=== PATIENT | male | born 1955 ===

== ENCOUNTER 2019-11-26 06:11 | Inpatient (IN) ==
[2019-11-26 09:26] LABS: Amorphous Crystals,Urine Few /HPF (Few); Apearance,Urine Slightly Hazy (Clear); Bilirubin,Urine Negative (Negative); Blood, Urine Small mg/dL (Negative); Glucose,Urine (UA) >=500 mg/dL (Negative); Ketones,Urine 80 mg/dL (Negative); Nitrite,Urine Negative (Negative); Protein,Urine Negative; Urine Color Yellow (Yellow); Urine Specific Gravity 1.023 (1.001-1.035); Urine Urobilinogen < 2.0 EU/DL (0.2-1.0)
[2019-11-26] MEDS ORDERED: LACTATED RINGERS 2,000 ML IV ONE (09:50)
[2019-11-26] MEDS ORDERED: LACTULOSE 20 GM/30 ML UDCUP PO PRN (09:54)
[2019-11-26] MEDS ORDERED: DEXTROSE 50% 25 GM/50 ML VIAL IV PRN (09:54)
[2019-11-26] MEDS ORDERED: DEXTROSE 10% 250 ML BAG IV PRN (09:54)
[2019-11-26] MEDS ORDERED: ACETAMINOPHEN 325 MG TABLET PO PRN (09:54)
[2019-11-26] MEDS ORDERED: ONDANSETRON 4 MG/2 ML VIAL IV PRN (09:54)
[2019-11-26] MEDS ORDERED: GLUCAGON 1 MG VIAL IM PRN ×2 (09:54)
[2019-11-26] MEDS ORDERED: ALUMINUM/MAGNES/SIMETH MAX STR 30 ML UDCUP PO PRN (09:54)
[2019-11-26] MEDS: ENOXAPARIN 30 MG/0.3 ML SYRINGE SUBCUT SCH (10:56)
[2019-11-26] MEDS: PANTOPRAZOLE 40 MG TABLET PO SCH (10:56)
[2019-11-26] MEDS: INSULIN LISPRO 100 UNIT/ML SUBCUT SCH ×3 (12:07→20:22)
[2019-11-26] MEDS: INSULIN NPH 100 UNIT/ML SUBCUT SCH ×2 (12:07→17:37)
[2019-11-26] MEDS: LACTATED RINGERS 1,000 ML IV SCH ×2 (12:20→20:24)
[2019-11-26] MEDS: METOCLOPRAMIDE 10 MG/2 ML VIAL IV SCH (18:16)
[2019-11-26] MEDS ORDERED: amLODIPine 10 MG TABLET PO SCH (18:35)
[2019-11-26] MEDS: amLODIPine 10 MG TABLET PO SCH (21:08)
[2019-11-27] MEDS: METOCLOPRAMIDE 10 MG/2 ML VIAL IV SCH ×2 (00:20→06:18)
[2019-11-27] MEDS: INSULIN LISPRO 100 UNIT/ML SUBCUT SCH ×6 (00:22→20:28)
[2019-11-27] MEDS: LACTATED RINGERS 1,000 ML IV SCH ×4 (04:46→21:00)
[2019-11-27 05:21] LABS: Basophils % 0.3 % (0.0-0.8); Eosinophils # 0.1 10*3/uL (0.0-0.87); Hematocrit 30.3 VOL% (42.0-52.0); Hemoglobin 10.1 GM/DL (14.0-18.0); Immature Granulocytes % 0.6 %; Immature Granulocytes Absolute 0.04 #; Lymphocytes # 2.4 10*3/uL (1.4-4.0); Lymphocytes % 35.1 % (21.2-54.2); Mean Corpuscular HGB Conc 33.3 GM/DL (32-36); Mean Corpuscular Volume 92.9 FL (87-102); Mean Platelet Volume 13.2 FL (9.6-12.0); Monocytes % 12.4 % (1.7-12.7); Neutrophils % 50.6 % (38.7-73.9); Platelet Count 127 T/CUMM (130-400); Red Blood Count 3.26 MC/CUMM (3.8-5.5); Red Cell Distribution Width 12.3 % (9.3-17.3); White Blood Count 6.9 T/CUMM (4-12)
[2019-11-27 05:37] LABS: Calcium 8.1 MG/DL (8.5-10.1); Osmolality,Calculated 275.8 MOS/KG (273-304)
[2019-11-27 06:01] LABS: Risk Ratio 6.08; Thyroid Stimulating Hormone 0.747 uIU/ml (0.358-3.74); VLDL CHOLESTEROL 65.6 MG/DL
[2019-11-27] MEDS: ENOXAPARIN 30 MG/0.3 ML SYRINGE SUBCUT SCH (09:02)
[2019-11-27] MEDS: PANTOPRAZOLE 40 MG TABLET PO SCH (09:02)
[2019-11-27] MEDS: INSULIN NPH 100 UNIT/ML SUBCUT SCH ×2 (09:02→16:41)
[2019-11-27] MEDS: amLODIPine 10 MG TABLET PO SCH (09:02)
[2019-11-28] MEDS: INSULIN LISPRO 100 UNIT/ML SUBCUT SCH ×7 (00:23→23:57)
[2019-11-28 06:26] LABS: Calcium 7.9 MG/DL (8.5-10.1)
[2019-11-28] MEDS ORDERED: POTASSIUM CHLORIDE INJ 40 MEQ in LACTATED RINGERS 1,000 ML IV SCH (09:00)
[2019-11-28] MEDS: PANTOPRAZOLE 40 MG TABLET PO SCH (09:19)
[2019-11-28] MEDS: amLODIPine 10 MG TABLET PO SCH (09:19)
[2019-11-28] MEDS: INSULIN NPH 100 UNIT/ML SUBCUT SCH ×2 (09:19→17:27)
[2019-11-28] MEDS: ENOXAPARIN 30 MG/0.3 ML SYRINGE SUBCUT SCH (09:23)
[2019-11-28] MEDS ORDERED: MAGNESIUM SULF RIDER 2 GM in PREMIX 1 EACH IV PRN (14:55)
[2019-11-28] MEDS ORDERED: MAGNESIUM SULF RIDER 4 GM in PREMIX 1 EACH IV PRN (14:55)
[2019-11-28] MEDS ORDERED: POTASSIUM PHOSPHATE 30 MMOL in SODIUM CHLORIDE 0.9% 250 ML IV ONE (16:00)
[2019-11-28] MEDS ORDERED: INSULIN NPH 100 UNIT/ML SUBCUT SCH ×2 (16:33→17:00)
[2019-11-28] MEDS ORDERED: SODIUM CHLORIDE 0.9% 1,000 ML IV SCH (18:00)
[2019-11-29] MEDS: INSULIN LISPRO 100 UNIT/ML SUBCUT SCH ×3 (05:50→12:29)
[2019-11-29] MEDS ORDERED: INSULIN NPH 100 UNIT/ML SUBCUT SCH (07:30)
[2019-11-29] MEDS: amLODIPine 10 MG TABLET PO SCH (09:12)
[2019-11-29] MEDS: ENOXAPARIN 30 MG/0.3 ML SYRINGE SUBCUT SCH (09:12)
[2019-11-29] MEDS: PANTOPRAZOLE 40 MG TABLET PO SCH (09:14)
[2019-11-29] MEDS ORDERED: POTASSIUM PHOS/SOD PHOS POWDER 250 MG PACK PO ONE (11:00)
[2019-11-29] MEDS: POTASSIUM CHLORIDE 20 MEQ TABLET PO PRN ×2 (11:40→13:53)
[2019-11-29 12:10] LABS: Microalbum Ur Quant Random 27.1 MG/L (0-20); Microalbum/Creat Ratio Random 53.1 RATIO (0-30)
[2019-11-29 15:52] VITALS: BP 127/74
== END 2019-11-29 16:45 | disposition home or self-care (01) | DRG 638 ==
LOC: N.ICU 09:06 → SUATTDRO 09:06 → N.3E 11-27 09:55
PROVIDERS: ADMIT Internal Medicine; ATTEND Internal Medicine